=== PATIENT | female | born 1960 | race Asian ===

== ENCOUNTER 2022-09-04 08:44 | Emergency (ER) | payer OTHER ==
[~2022-09-04] VITALS: Ht 167.6 cm; Wt 70.0 kg
[2022-09-04 08:55] VITALS: BP 145/75
[2022-09-04] MEDS ORDERED: MECLIZINE HCL 25 MG TAB PO ONE (09:30)
== END 2022-09-04 17:08 | disposition left against medical advice (07) ==
LOC: EDBD 08:44 → ER 08:44
DX: S16.1XXA Strain of muscle, fascia and tendon at neck level, initial encounter (principal); R51.9 Headache, unspecified; E78.5 Hyperlipidemia, unspecified; V49.9XXA Car occupant (driver) (passenger) injured in unspecified traffic accident, initial encounter; Y93.89 Activity, other specified; Y92.89 Other specified places as the place of occurrence of the external cause; Y99.8 Other external cause status
CPT/HCPCS: 70450; 72125; 72192